=== PATIENT | female | born 1980 | race Caucasian/White ===

== ENCOUNTER 2017-09-07 10:10 | Emergency (ER) | payer BC, OTHER ==
[2017-09-07 10:25] VITALS: BP 151/80
--- NOTE | 2017-09-07 10:55 | ER Document Report ---
ED General - General Chief Complaint: Thigh Pain Stated Complaint: RIGHT THIGH PAIN Notes: 36-year-old female presents with "my family thinks I need to get a blood clot ruled out". She describes is slightly painful patch of dark swelling on the back of her right leg that came up yesterday without trauma. No swelling of the leg. No ankle swelling or foot swelling no shortness of breath no smoking oral contraceptives or risk for clot including no history of clot. TRAVEL OUTSIDE OF THE [place] IN LAST 30 DAYS: No - Related Data Allergies/Adverse Reactions: No Known Allergies Allergy (Verified 09/07/17 10:11) Past Medical History - Social History Smoking Status: Never Smoker Family History: None - Past Medical History Cardiac Medical History: Reports: Hx Hypertension Review of Systems - Review of Systems Notes: REVIEW OF SYSTEMS GEN: Denies fever, chills, weight loss ENT: Denies sore throat, nasal discharge, ear pain EYES: Denies blurry vision, eye pain, discharge CV: Denies chest pain, palpitations, edema RESP: Denies cough, shortness of breath, wheezing GI: Denies abdominal pain, nausea, vomiting, diarrhea MSK: Denies joint pain/swelling, edema, SKIN: No patch on the right leg LYMPH: Denies swollen glands/lymph nodes NEURO: Denies headache, focal weakness or numbness, dizziness PSYCH: Denies depression, suicidal or homicidal ideation PHYSICAL EXAMINATION General: No acute distress, well-nourished Head: Atraumatic, normocephalic ENT: Mouth normal, oropharynx moist, lips normal Eyes: Conjunctiva normal, pupils equal, lids normal Neck: No JVD, supple, no guarding Resp: No resp distress, equal chest rise GI: Nondistended, no guarding Back: No midline or CVA tenderness Ext: No deformities, no edema. Obese. Skin: Well-perfused, no rash. Nontender hyperpigmented patch about 8 x 4 cm in the posterior mid right thigh. No palpable clots or varicosities. Neuro: Awake, alert. Face symmetric. Physical Exam - Vital signs Vitals: Temp Pulse Resp BP Pulse Ox 98.0 F 80 20 151/80 H 98 09/07/17 10:24 09/07/17 10:24 09/07/17 10:24 09/07/17 10:24 09/07/17 10:24 Course - Re-evaluation Re-evalutation: 09/07/17 10:59 Patient with no DVT risk factors presents with superficial patch of ecchymosis mildly tender on the back of her right thigh. No evidence for superficial femoral phlebitis. Very much doubt deep vein thrombosis given this appearance. Counseled on heat ice Motrin and follow-up. I have discussed with the patient there likely diagnosis, aftercare plan, follow-up plans and my usual and customary return precautions. They verbalized understanding of this. - Vital Signs Vital signs: Temp Pulse Resp BP Pulse Ox 98.0 F 80 20 151/80 H 98 09/07/17 10:24 09/07/17 10:24 09/07/17 10:24 09/07/17 10:24 09/07/17 10:24 Discharge - Discharge Clinical Impression: Traumatic ecchymosis of right lower leg Qualifiers: Encounter type: initial encounter Qualified Code(s): S80.11XA - Contusion of right lower leg, initial encounter Condition: Good Disposition: HOME, SELF-CARE Instructions: Contusion ([facility]) Additional Instructions: Do not seem to have a blood clot at this time but if her leg swells more I would like you to come back to have an ultrasound.
== END 2017-09-07 13:00 | disposition home or self-care (01) ==
LOC: ER 10:10
DX: L03.115 Cellulitis of right lower limb (principal); M79.651 Pain in right thigh; I10 Essential (primary) hypertension
CPT/HCPCS: 99283

== ENCOUNTER → 2018-01-04 | Outpatient (CLI) | payer BC ==
--- NOTE | 2018-01-04 09:03 | RADIOLOGY REPORT (SQ) ---
EXAM DESCRIPTION: MRI RT LOWER JOINT WITHOUT COMPLETED DATE/TIME: 01/04/2018 8:24 am REASON FOR STUDY: INTERNAL DERANGEMENT OF RIGHT KNEE (M23.91) M23.91 UNSPECIFIED INTERNAL DERANGEME NT OF RIGHT KNEE COMPARISON: None. TECHNIQUE: Rightknee images acquired and stored on PACS. Multiplanar images include fat sensitive s equences as T1, water sensitive sequences as FST2 or STIR, cartilage sensitive sequences as FSPD, and gradient echo sequences. LIMITATIONS: None. FINDINGS: JOINT AND BURSAE: Joint effusion. No popliteal cyst. BONE CORTEX AND MARROW: No alteration of signal to suggest marrow replacement. No worrisome bone lesi ons. No occult fracture. ACL: Intact. No degeneration or ganglion cyst. PCL: Intact. MCL: Intact. No periligamentous edema or fluid. LCL: Intact. No periligamentous edema or fluid. MEDIAL MENISCUS: Large vertical radial tear posterior meniscus with distraction. Extends anteriorly to a flap tear. LATERAL MENISCUS: Posterior undersurface flap tear extending from the popliteal fossa. MEDIAL COMPARTMENT: Small area of cartilaginous loss weight-bearing surface mid medial femoral condyl es. Peripheral osteophytes and reactive edema. LATERAL COMPARTMENT: Cartilage preserved. No bone bruises or reactive marrow edema. No osteophytes. PATELLA: Generalized irregular chondromalacia is without focal full-thickness loss. Mildly irregular trochlear cartilage. Patellofemoral osteophytes. EXTENSOR MECHANISM: Intact. Quadriceps and patella tendons normal. SOFT TISSUES: Adjacent muscles and subcutaneous tissues normal. Normal flow void in popliteal artery and vein. OTHER: No other significant finding. IMPRESSION: Large vertical radial tear of the medial meniscus with extension anteriorly to a flap te ar. Posterior undersurface flap tear of the lateral meniscus extending from the popliteal fossa. Early degenerative changes medial compartment. Patellofemoral chondromalacia and osteophytes. Joint effusion. TECHNICAL DOCUMENTATION: JOB ID: [id number] [employer]- All Rights Reserved Reading location - IP/workstation name: [email or web address]
== END ==
LOC: RAD 07:30
PROVIDERS: ATTEND Orthopaedic Surgery
DX: M23.91 Unspecified internal derangement of right knee (principal)

== ENCOUNTER 2018-05-30 10:10 | Emergency (ER) | payer BC ==
[2018-05-30 10:19] VITALS: BP 177/95
--- NOTE | 2018-05-30 10:50 | ER Document Report ---
ED Medical Screen (RME) - General Chief Complaint: High Blood Pressure Stated Complaint: ELEVATED BLOOD PRESSURE Time Seen by Provider: 05/30/18 10:50 TRAVEL OUTSIDE OF THE [place] IN LAST 30 DAYS: No - Related Data Allergies/Adverse Reactions: No Known Allergies Allergy (Verified 05/30/18 10:11) Past Medical History - Past Medical History Cardiac Medical History: Reports: Hx Hypertension Renal/ Medical History: Denies: Hx Peritoneal Dialysis Past Surgical History: Reports: Hx Gynecologic Surgery - fibroid cyst Physical Exam - Vital signs Vitals: Temp Pulse Resp BP Pulse Ox 98.8 F 97 20 177/95 H 98 05/30/18 10:16 05/30/18 10:16 05/30/18 10:16 05/30/18 10:16 05/30/18 10:16 Course - Vital Signs Vital signs: Temp Pulse Resp BP Pulse Ox 98.8 F 97 20 177/95 H 98 05/30/18 10:16 05/30/18 10:16 05/30/18 10:16 05/30/18 10:16 05/30/18 10:16 Doctor's Discharge - Discharge Referrals: ARIEL RAMOS MD [Primary Care Provider] - Follow up as needed
--- NOTE | 2018-05-30 11:07 | ER Document Report ---
ED Blood Pressure Problem - General Chief Complaint: High Blood Pressure Stated Complaint: ELEVATED BLOOD PRESSURE Time Seen by Provider: 05/30/18 10:50 Notes: 37-year-old female patient emergency department chief complaint of hypertension. Patient was sent over here for evaluation by primary care doctor because reportedly her blood pressure was 210/110 at the house. Patient states that this is been some that is been going on for a very long time. Patient is asymptomatic. On occasion she has some numbness and tingling in her left hand. Denies any severe headache at this time. Not on any medications. Denies any chest pain, shortness of breath, lower extremity edema, dyspnea on exertion, orthopnea, decreased urinary output or any other major symptoms at this time. Patient is well-appearing and in no acute distress smiling and laughing. TRAVEL OUTSIDE OF THE [place] IN LAST 30 DAYS: No - HPI Patient complains to provider of: High blood pressure Onset/Duration: Gradual Quality of pain: No pain Severity: None Pain Level: Denies Associated symptoms: None - Related Data Allergies/Adverse Reactions: No Known Allergies Allergy (Verified 05/30/18 10:11) Past Medical History - General Information source: Patient - Social History Smoking Status: Never Smoker Cigarette use (# per day): No Frequency of alcohol use: None Drug Abuse: None Lives with: Family Family History: None Patient has suicidal ideation: No Patient has homicidal ideation: No - Past Medical History Cardiac Medical History: Reports: Hx Hypertension Renal/ Medical History: Denies: Hx Peritoneal Dialysis Past Surgical History: Reports: Hx Gynecologic Surgery - fibroid cyst Review of Systems - Review of Systems Notes: Constitutional: denies: Chills, Diaphoresis, Fever, Malaise, Weakness EENT: denies: Eye discharge, Blurred vision, Tearing, Double vision, Nose congestion, Nose discharge, Throat swelling, Mouth pain Cardiovascular: denies: Palpitations, Heart racing, Orthopnea, Dyspnea, Chest pain Respiratory: denies: Cough, Hurts to breathe, Wheezing, Shortness of breath Gastrointestinal: denies: Abdominal pain, Diarrhea, Nausea, Vomiting, Black stools, bright red blood in stool Genitourinary: denies: Burning, Dysuria, Discharge, Frequency, Flank pain, Hematuria Musculoskeletal: denies: Joint pain, Joint swelling, Muscle pain, Muscle stiffness, back pain Hematologic/Lymphatic: denies: Anemia, Easy bleeding, Easy bruising, Blood clots Neurological/Psychological: denies: Confusion, Dementia, Depression, Loss of consciousness. Does occasionally have some tingling in her hands. Skin: No lesions, no masses, no skin breakdown, no abscesses Physical Exam - Vital signs Vitals: Temp Pulse Resp BP Pulse Ox 98.8 F 97 20 177/95 H 98 05/30/18 10:16 05/30/18 10:16 05/30/18 10:16 05/30/18 10:16 05/30/18 10:16 Interpretation: Normal - General General appearance: Appears well, Alert - HEENT Head: Normocephalic, Atraumatic Eyes: Normal Pupils: PERRL - Respiratory Respiratory status: No respiratory distress Chest status: Nontender Breath sounds: Normal Chest palpation: Normal - Cardiovascular Rhythm: Regular Heart sounds: Normal auscultation Murmur: No - Abdominal Inspection: Normal Distension: No distension Bowel sounds: Normal Tenderness: Nontender Organomegaly: No organomegaly - Back Back: Normal, Nontender - Extremities General upper extremity: Normal inspection, Nontender, Normal color, Normal ROM , Normal temperature General lower extremity: Normal inspection, Nontender, Normal color, Normal ROM , Normal temperature, Normal weight bearing. No: Bridger's sign - Neurological Neuro grossly intact: Yes Cognition: Normal Orientation: AAOx4 Ruthann Coma Scale Eye Opening: Spontaneous Ruthann Coma Scale Verbal: Oriented Bethel Coma Scale Motor: Obeys Commands Bethel Coma Scale Total: 15 Speech: Normal Motor strength normal: LUE, RUE, LLE, RLE Sensory: Normal - Psychological Associated symptoms: Normal affect, Normal mood - Skin Skin Temperature: Warm Skin Moisture: Dry Skin Color: Normal Course - Re-evaluation Re-evalutation: 05/30/18 12:53 This is a well-appearing female in no acute distress. Had a long discussion with regards to dietary management of hypertension including low carbohydrate versus low fat diet, low sodium as well as beginning exercise. I will start patient on some losartan at this time. Patient is advised to follow back up with her primary care doctor for repeat evaluation. Of note, patient's blood sugar is slightly elevated at 137 but I do not know when her last meal was. We will speak to her about this as well and I will add on a hemoglobin A1c to her labs that are currently in the laboratory. We will discharge her at this time in stable condition. - Vital Signs Vital signs: Temp Pulse Resp BP Pulse Ox 98.8 F 97 20 177/95 H 98 05/30/18 10:16 05/30/18 10:16 05/30/18 10:16 05/30/18 10:16 05/30/18 10:16 - Laboratory Result Diagrams: 05/30/18 11:50 05/30/18 11:50 Laboratory results interpreted by me: 05/30/18 05/30/18 05/30/18 11:45 11:50 11:50 MCH 26.8 L RDW 14.4 H Glucose 137 H Ur Leukocyte Esterase TRACE H - EKG Interpretation by Pr EKG shows normal: Sinus rhythm, [place], Intervals, QRS Complexes, ST-T Waves Discharge - Discharge Clinical Impression: Hypertension Qualifiers: Hypertension type: unspecified Qualified Code(s): I10 - Essential (primary) hypertension Condition: Good Disposition: HOME, SELF-CARE Instructions: High Blood Pressure, Requiring Treatment ([facility]) Additional Instructions: We are going to start on some medications that are usually very well tolerated. It is very important that you begin your medications at this time. Prescriptions: Losartan Potassium 50 mg PO DAILY 30 Days #30 tablet Referrals: ARIEL RAMOS MD [NO LOCAL MD] - Follow up in 3-5 days
[2018-05-30 12:02] LABS: ABSOLUTE BASOPHILS # (AUTO) 0.1 10^3/uL (0.0-0.2); ABSOLUTE EOSINOPHILS # (AUTO) 0.2 10^3/uL (0.0-0.6); ABSOLUTE LYMPHOCYTES (AUTO) 2.3 10^3/uL (0.5-4.7); ABSOLUTE MONOCYTES (AUTO) 0.4 10^3/uL (0.1-1.4); ABSOLUTE NEUT (AUTO) 5.8 10^3/uL (1.7-8.2); BASOPHILS % (AUTO) 0.8 % (0-2); EOSINOPHILS % (AUTO) 1.9 % (0-6); HEMATOCRIT 37.7 % (36.0-47.0); HEMOGLOBIN 12.4 g/dL (12.0-15.5); LYMPHOCYTES % (AUTO) 26.3 % (13-45); MEAN CORPUSCULAR HEMOGLOBIN 26.8 pg (27.0-33.4); MEAN CORPUSCULAR HGB CONC 32.8 g/dL (32.0-36.0); MEAN CORPUSCULAR VOLUME 82 fl (80-97); MONOCYTES % (AUTO) 4.8 % (3-13); PLATELET COUNT 373 10^3/uL (150-450); RED BLOOD COUNT 4.62 10^6/uL (3.72-5.28); RED CELL DISTRIBUTION WIDTH 14.4 % (11.5-14.0); SEGMENTED NEUTROPHILS % (AUTO) 66.2 % (42-78); TOTAL CELLS COUNTED % (AUTO) 100 %; WHITE BLOOD COUNT 8.8 10^3/uL (4.0-10.5)
--- NOTE | 2018-05-30 12:10 | RADIOLOGY REPORT (SQ) ---
EXAM DESCRIPTION: CT HEAD WITHOUT COMPLETED DATE/TIME: 05/30/2018 11:58 am REASON FOR STUDY: hypertension and left hand tingling COMPARISON: None. TECHNIQUE: Axial images acquired through the brain without intravenous contrast. Images reviewed wi th bone, brain and subdural windows. Additional sagittal and coronal reconstructions were generated. Images stored on PACS. All CT scanners at this facility use dose modulation, iterative reconstruction, and/or weight based d osing when appropriate to reduce radiation dose to as low as reasonably achievable (ALARA). [facility]: Dose Right [facility]: CareDose [facility]: Dose Right [facility]: Teradose 4D [facility]: quickhuddle RADIATION DOSE: CT Rad equipment meets quality standard of care and radiation dose reduction techniq ues were employed. CTDIvol: 53.2 mGy. DLP: 1097 mGy-cm. mGy. LIMITATIONS: None. FINDINGS: VENTRICLES: Normal size and contour. CEREBRUM: No masses. No hemorrhage. No midline shift. No evidence for acute infarction. Normal gra y/white matter differentiation. No areas of low density in the white matter. CEREBELLUM: No masses. No hemorrhage. No alteration of density. No evidence for acute infarction. EXTRAAXIAL SPACES: No fluid collections. No masses. ORBITS AND GLOBE: No intra- or extraconal masses. Normal contour of globe without masses. CALVARIUM: No fracture. PARANASAL SINUSES: No fluid or mucosal thickening. SOFT TISSUES: No mass or hematoma. OTHER: No other significant finding. IMPRESSION: NORMAL BRAIN CT WITHOUT CONTRAST. EVIDENCE OF ACUTE STROKE: NO. COMMENT: Quality ID # [id number]: Final reports with documentation of one or more dose reduction techniques (e.g., Automated exposure control, adjustment of the mA and/or kV according to patient size, use of iterative reconstruction technique) TECHNICAL DOCUMENTATION: JOB ID: [id number] [employer]- All Rights Reserved Reading location - IP/workstation name: [email or web address]
[2018-05-30 12:19] LABS: APPEARANCE,URINE SLIGHTLY-CLOUDY; BILIRUBIN,URINE NEGATIVE (NEGATIVE); COLOR,URINE YELLOW; GLUCOSE, URINE NEGATIVE (NEGATIVE); KETONES,URINE NEGATIVE (NEGATIVE); LEUKOCYTE ESTERASE,URINE TRACE (NEGATIVE); NITRITE,URINE NEGATIVE (NEGATIVE); PROTEIN,URINE NEGATIVE (NEGATIVE); URINE SPECIFIC GRAVITY 1.021; UROBILINOGEN,URINE NEGATIVE mg/dL (<2.0)
[2018-05-30 12:31] LABS: ALANINE AMINOTRANSFERASE 23 U/L (9-52); ALBUMIN 3.9 g/dL (3.5-5.0); ALKALINE PHOSPHATASE 80 U/L (38-126); ANION GAP 15 (5-19); ASPARTATE AMINO TRANSFERASE 26 U/L (14-36); BILIRUBIN,DIRECT 0.3 mg/dL (0.0-0.4); BILIRUBIN,TOTAL 0.3 mg/dL (0.2-1.3); BLOOD UREA NITROGEN 10 mg/dL (7-20); CALCIUM 9.2 mg/dL (8.4-10.2); CARBON DIOXIDE 23 mmol/L (22-30); CHLORIDE 105 mmol/L (98-107); GLUCOSE 137 mg/dL (75-110); POTASSIUM 4.1 mmol/L (3.6-5.0); SODIUM 142.6 mmol/L (137-145); TOTAL PROTEIN 7.7 g/dL (6.3-8.2)
[2018-05-30] MEDS ORDERED: LOSARTAN POTASSIUM 50 MG TABLET PO ONE (12:36)
--- NOTE | 2018-05-30 13:23 | EKG REPORT ---
SEVERITY:- BORDERLINE ECG - SINUS RHYTHM BORDERLINE T ABNORMALITIES, INFERIOR LEADS : Confirmed by: Jameson Jaquez MD 30-May-2018 13:21:18
== END 2018-05-30 13:20 | disposition home or self-care (01) ==
LOC: ER 10:10
DX: I10 Essential (primary) hypertension (principal)
CPT/HCPCS: 36415; 70450; 80053; 81001; 85025; 93005; 93010; 99284